=== PATIENT | female | born 1995 | race Two or more races ===

== ENCOUNTER 2017-01-17 09:04 | Inpatient (IN) | payer OTHER ==
[2017-01-17] MEDS ORDERED: NORMAL SALINE 1000 ML 1,000 ML IV ONE ×2 (09:29→10:39)
--- NOTE | 2017-01-17 09:36 | ER Document Report ---
ED Seizure - General Mode of Arrival: Medic Information source: Relative - , Emergency Med Personnel - HPI Patient complains to provider of: First seizure Number of episodes: 2 Preceding symptoms/context: Other - 6 days Character of seizure: Complete loss/conscious Post-ictal symptoms: Confusion Treatment [employer]: Other - Versed 4 mg Associated Symptoms: Confusion, Loss consciousness <MARICHUY HOLBROOK - Last Filed: 01/17/17 09:31> <TAJ HUBER - Last Filed: 01/17/17 12:08> - General Chief Complaint: Seizure Stated Complaint: POSSIBLE SEIZURE Time Seen by Provider: 01/17/17 09:22 Notes: Patient is a 20-year-old female, 6 days , presenting to the emergency department by EMS after she was witnessed having seizure by her , in which she became unresponsive, foaming at the mouth, eyes rolled back just prior to arrival. EMS states that on arrival patient was postictal with a left- sided gaze, confused. Not long after they arrived, EMS witnessed the patient having a grand mal seizure. Per EMS, patient was administered 4 mg of Versed en route, and upon becoming conscious she was very combative. Patient's states that the patient developed hypertension, but was not hypertensive during the . The hospital kept the patient for observation a couple of days after giving naturally with an epidural, and she was discharged on January 13, 2017, 2 days after giving . Patient's reports that last night the patient was complaining of a headache and she lost vision in one eye. Patient's states that they googled her symptoms and saw that they were symptoms of migraines, so the patient just went to sleep. 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 (MARICHUY HOLBROOK) - Related Data Allergies/Adverse Reactions: No Known Allergies Allergy (Verified 01/17/17 09:09) Past Medical History - General Information source: Relative - , Emergency Med Personnel, [facility] - Social History Smoking Status: Never Smoker Family History: Reviewed & Not Pertinent <MARICHUY HOLBROOK - Last Filed: 01/17/17 09:31> Review of Systems - Review of Systems Constitutional: No symptoms reported EENT: See HPI, Other - Lost vision in one eye last night Cardiovascular: No symptoms reported Respiratory: No symptoms reported Gastrointestinal: No symptoms reported Genitourinary: No symptoms reported Female Genitourinary: No symptoms reported Musculoskeletal: No symptoms reported Skin: No symptoms reported Hematologic/Lymphatic: No symptoms reported Neurological/Psychological: See HPI, Seizure, Lost consciousness, Headaches -: Yes All other systems reviewed and negative <MARICHUY HOLBROOK - Last Filed: 01/17/17 09:31> Physical Exam - General General appearance: Alert - Postictal, Confused - HEENT Head: Normocephalic, Atraumatic Eyes: Normal Pupils: PERRL - Respiratory Respiratory status: No respiratory distress Chest status: Nontender Breath sounds: Normal Chest palpation: Normal - Cardiovascular Rhythm: Regular Heart sounds: Normal auscultation Murmur: No - Abdominal Inspection: Normal Distension: No distension Bowel sounds: Normal Tenderness: Nontender Organomegaly: No organomegaly - Back Back: Normal, Nontender - Extremities General upper extremity: Normal inspection, Nontender General lower extremity: Normal inspection, Nontender - Neurological Cognition: Confused [place] Coma Scale Eye Opening: Spontaneous Airam Coma Scale Verbal: Oriented Airam Coma Scale Motor: Obeys Commands Airam Coma Scale Total: 15 - Psychological Associated symptoms: Confused, Other - Postictal - Skin Skin Temperature: Warm Skin Moisture: Dry Skin Color: Normal <MARICHUY HOLBROOK - Last Filed: 01/17/17 09:31> Course <MARICHUY HOLBROOK - Last Filed: 01/17/17 09:31> - Laboratory Result Diagrams: 01/17/17 09:30 01/17/17 09:30 - Diagnostic Test Radiology reviewed: Image reviewed, Reports reviewed - Chest x-ray and brain CT are unremarkable. - EKG Interpretation by Me EKG shows normal: Sinus rhythm, [place], Intervals, QRS Complexes. abnormal: ST-T Waves - Borderline inferior T abnormalities Rate: Tachycardia - 118 P Waves: LAE - Consults Dr. Lopez Consulted provider: will come to ER <TAJ HUBER - Last Filed: 01/17/17 12:08> - Re-evaluation Re-evalutation: 01/17/17 11:14 I went in to review the case with the patient and her spouse. I discussed her headache with her and told her I would order some more pain medication for her. Shortly after I left the room she began having a generalized seizure. This lasted for possibly 2 minutes. She was given some Ativan IV. The magnesium arrived and infusion has been started. (TAJ HUBER) - Vital Signs Vital signs: Temp Pulse Resp BP Pulse Ox 99.0 F 17 127/89 H 96 01/17/17 10:22 01/17/17 11:18 01/17/17 11:18 01/17/17 11:18 - Laboratory Laboratory results interpreted by me: 01/17/17 01/17/17 01/17/17 09:30 09:30 09:30 WBC 13.0 H RDW 15.2 H Seg Neuts % (Manual) 86 H Lymphocytes % (Manual) 8 L Abs Neuts (Manual) 11.2 H Carbon Dioxide 18 L AST 43 H Alkaline Phosphatase 161 H Creatine Kinase 539 H CK-MB (CK-2) 6.18 H Urine Protein Urine Ketones Urine Blood Ur Leukocyte Esterase 01/17/17 10:45 WBC RDW Seg Neuts % (Manual) Lymphocytes % (Manual) Abs Neuts (Manual) Carbon Dioxide AST Alkaline Phosphatase Creatine Kinase CK-MB (CK-2) Urine Protein 100 H Urine Ketones TRACE H Urine Blood MODERATE H Ur Leukocyte Esterase SMALL H Critical Care Note - Critical Care Note Total time excluding time spent on procedures (mins): 40 <TAJ HUBER - Last Filed: 01/17/17 12:08> Discharge <MARICHUY HOLBROOK - Last Filed: 01/17/17 09:31> - Discharge Admitting Provider: [facility] Admitted: Labor and Delivery <TAJ HUBER - Last Filed: 01/17/17 12:08> - Discharge Clinical Impression: eclampsia, seizure Hypertension Qualifiers: Hypertension type: other secondary hypertension Qualified Code(s): I15.8 - Other secondary hypertension Condition: Fair Disposition: ADMITTED INPATIENT Scribe Attestation: 01/17/17 11:29 I personally performed the services described in the documentation, reviewed and edited the documentation which was dictated to the scribe in my presence, and it accurately records my words and actions. (TAJ HUBER) Scribe Documentation - Scribe Written by Scribe:: Ismael Glaser, 01/17/2017 0931 acting as scribe for :: Ness <MARICHUY HOLBROOK - Last Filed: 01/17/17 09:31>
[2017-01-17 09:58] LABS: HEMATOCRIT 38.2 % (36.0-47.0); HEMOGLOBIN 12.4 g/dL (12.0-15.5); MEAN CORPUSCULAR HEMOGLOBIN 28.9 pg (27.0-33.4); MEAN CORPUSCULAR HGB CONC 32.5 g/dL (32.0-36.0); MEAN CORPUSCULAR VOLUME 89 fl (80-97); RED BLOOD COUNT 4.28 10^6/uL (3.72-5.28); RED CELL DISTRIBUTION WIDTH 15.2 % (11.5-14.0)
[2017-01-17 10:12] LABS: ALANINE AMINOTRANSFERASE 35 U/L (9-52); ALBUMIN 3.5 g/dL (3.5-5.0); ALKALINE PHOSPHATASE 161 U/L (38-126); ANION GAP 15 (5-19); ASPARTATE AMINO TRANSFERASE 43 U/L (14-36); BILIRUBIN,DIRECT 0.2 mg/dL (0.0-0.4); BILIRUBIN,TOTAL 0.7 mg/dL (0.2-1.3); BLOOD UREA NITROGEN 14 mg/dL (7-20); CALCIUM 9.3 mg/dL (8.4-10.2); CARBON DIOXIDE 18 mmol/L (22-30); CHLORIDE 106 mmol/L (98-107); CREATINE KINASE 539 U/L (30-135); CREATININE RESULT 0.82 mg/dL (0.52-1.25); GLUCOSE 91 mg/dL (75-110); POTASSIUM 3.8 mmol/L (3.6-5.0); SODIUM 139.3 mmol/L (137-145); TOTAL PROTEIN 6.6 g/dL (6.3-8.2)
[2017-01-17 10:29] LABS: CREATINE KINASE MB 6.18 ng/mL (<4.55)
[2017-01-17 10:31] LABS: ADD ON TESTING BLD IN LAB ACKNOWLEDGE; TROPONIN I 0.057 ng/mL
[2017-01-17] MEDS ORDERED: ACETAMINOPHEN 325 MG TABLET PO ONE (10:38)
[2017-01-17] MEDS ORDERED: MAGNESIUM SULFATE 100 ML IV ONE (10:39)
[2017-01-17 10:42] LABS: BASOPHILS % (MANUAL) 0 % (0-2); EOSINOPHILS % (MANUAL) 1 % (0-6); LYMPHOCYTES % (MANUAL) 8 % (13-45); TOTAL CELLS COUNTED 100
[2017-01-17 10:43] LABS: ANISOCYTOSIS SLIGHT; BURR CELLS SLIGHT; OVALOCYTES SLIGHT; POIKILOCYTOSIS SLIGHT; TEAR DROP CELLS SLIGHT; TOXIC GRANULATION SLIGHT
--- NOTE | 2017-01-17 10:43 | RADIOLOGY REPORT (SQ) ---
EXAM DESCRIPTION: CHEST SINGLE VIEW COMPLETED DATE/TIME: 01/17/2017 10:35 am REASON FOR STUDY: seizure COMPARISON: None. EXAM PARAMETERS: NUMBER OF VIEWS: One view. TECHNIQUE: Single frontal radiographic view of the chest acquired. RADIATION DOSE: NA LIMITATIONS: None. FINDINGS: LUNGS AND PLEURA: No opacities, masses or pneumothorax. No pleural effusion. MEDIASTINUM AND HILAR STRUCTURES: No masses. Contour normal. HEART AND VASCULAR STRUCTURES: Heart normal in size. Normal vasculature. BONES: No acute findings. HARDWARE: None in the chest. OTHER: No other significant finding. IMPRESSION: NO ACUTE RADIOGRAPHIC FINDING IN THE CHEST. TECHNICAL DOCUMENTATION: JOB ID: [id number]
[2017-01-17 10:49] LABS: MAGNESIUM 2.1 mg/dL (1.6-2.3)
--- NOTE | 2017-01-17 10:54 | RADIOLOGY REPORT (SQ) ---
EXAM DESCRIPTION: CT HEAD WITHOUT COMPLETED DATE/TIME: 01/17/2017 10:46 am REASON FOR STUDY: seizure COMPARISON: None. TECHNIQUE: Axial images acquired through the brain without intravenous contrast. Images reviewed wi th bone, brain and subdural windows. Images stored on PACS. All CT scanners at this facility use dose modulation, iterative reconstruction, and/or weight based d osing when appropriate to reduce radiation dose to as low as reasonably achievable (ALARA). [facility]: Dose Right [facility]: CareDose [facility]: Dose Right [facility]: Teradose 4D [facility]: Fix8 RADIATION DOSE: 64.61 mGy. LIMITATIONS: None. FINDINGS: VENTRICLES: Normal size and contour. CEREBRUM: No masses. No hemorrhage. No midline shift. Normal lee/white matter differentiation. N o evidence for acute infarction. CEREBELLUM: No masses. No hemorrhage. No alteration of density. No evidence for acute infarction. EXTRAAXIAL SPACES: No fluid collections. No masses. ORBITS AND GLOBE: No intra- or extraconal masses. Normal contour of globe without masses. CALVARIUM: No fracture. PARANASAL SINUSES: No fluid or mucosal thickening. SOFT TISSUES: No mass or hematoma. OTHER: No other significant finding. IMPRESSION: NORMAL BRAIN CT WITHOUT CONTRAST. TECHNICAL DOCUMENTATION: JOB ID: [id number] Quality ID # [id number]: Final reports with documentation of one or more dose reduction techniques (e.g., Au tomated exposure control, adjustment of the mA and/or kV according to patient size, use of iterative reconstruction technique) 2010 [employer]- All Rights Reserved
[2017-01-17] MEDS ORDERED: LORAZEPAM INJ 2 MG/1 ML VIAL IV ONE (11:07)
[2017-01-17 11:36] LABS: APPEARANCE,URINE CLEAR; BILIRUBIN,URINE NEGATIVE (NEGATIVE); GLUCOSE, URINE NEGATIVE (NEGATIVE); KETONES,URINE TRACE mg/dL (NEGATIVE); LEUKOCYTE ESTERASE,URINE SMALL (NEGATIVE); NITRITE,URINE NEGATIVE (NEGATIVE); PROTEIN,URINE 100 mg/dL (NEGATIVE); URINE SPECIFIC GRAVITY 1.008; UROBILINOGEN,URINE NEGATIVE mg/dL (<2.0)
[2017-01-17 11:59] LABS: ADD ON TESTING BLD IN LAB ACKNOWLEDGE
[2017-01-17] MEDS: MAGNESIUM SULFATE 500 ML IV PRN ×2 (12:02→23:21)
[2017-01-17] MEDS ORDERED: RINGERS SOLUTION,LACTATED 1,000 ML IV PRN (12:21)
[2017-01-17 12:30] LABS: URIC ACID 10.2 mg/dL (2.5-6.2)
[2017-01-17] MEDS ORDERED: LORAZEPAM INJ 2 MG/1 ML VIAL ONE (14:31)
--- NOTE | 2017-01-17 16:19 | EKG REPORT ---
SEVERITY:- BORDERLINE ECG - SINUS TACHYCARDIA PROBABLE LEFT ATRIAL ABNORMALITY BORDERLINE T ABNORMALITIES, INFERIOR LEADS : Confirmed by: Gris Arguello MD 17-Jan-2017 16:18:31
[2017-01-17 19:32] LABS: ABSOLUTE LYMPHOCYTES (AUTO) 0.9 10^3/uL (0.5-4.7); ABSOLUTE MONOCYTES (AUTO) 0.8 10^3/uL (0.1-1.4); ABSOLUTE NEUT (AUTO) 10.8 10^3/uL (1.7-8.2); BASOPHILS % (AUTO) 0.3 % (0-2); EOSINOPHILS % (AUTO) 0.3 % (0-6); HEMATOCRIT 39.3 % (36.0-47.0); HEMOGLOBIN 12.7 g/dL (12.0-15.5); HGB HCT DIFFERENCE -1.2; LYMPHOCYTES % (AUTO) 7.3 % (13-45); MEAN CORPUSCULAR HEMOGLOBIN 28.7 pg (27.0-33.4); MEAN CORPUSCULAR HGB CONC 32.3 g/dL (32.0-36.0); MEAN CORPUSCULAR VOLUME 89 fl (80-97); MONOCYTES % (AUTO) 6.4 % (3-13); RED BLOOD COUNT 4.42 10^6/uL (3.72-5.28); RED CELL DISTRIBUTION WIDTH 15.2 % (11.5-14.0); SEGMENTED NEUTROPHILS % (AUTO) 85.7 % (42-78); WHITE BLOOD COUNT 12.6 10^3/uL (4.0-10.5)
[2017-01-17 19:41] LABS: ALANINE AMINOTRANSFERASE 44 U/L (9-52); ALBUMIN 3.5 g/dL (3.5-5.0); ALKALINE PHOSPHATASE 178 U/L (38-126); ANION GAP 11 (5-19); ASPARTATE AMINO TRANSFERASE 53 U/L (14-36); BILIRUBIN,DIRECT 0.2 mg/dL (0.0-0.4); BILIRUBIN,TOTAL 0.7 mg/dL (0.2-1.3); BLOOD UREA NITROGEN 10 mg/dL (7-20); CALCIUM 8.4 mg/dL (8.4-10.2); CARBON DIOXIDE 22 mmol/L (22-30); CHLORIDE 105 mmol/L (98-107); CREATINE KINASE 1426 U/L (30-135); CREATININE RESULT 0.72 mg/dL (0.52-1.25); GLUCOSE 63 mg/dL (75-110); LDH 1398 U/L (313-618); SODIUM 137.5 mmol/L (137-145); TOTAL PROTEIN 6.5 g/dL (6.3-8.2); URIC ACID 8.5 mg/dL (2.5-6.2)
[2017-01-17 19:53] LABS: CREATINE KINASE MB 8.54 ng/mL (<4.55)
[2017-01-17 19:58] LABS: TROPONIN I 0.105 ng/mL
[2017-01-17] MEDS ORDERED: DEXTROSE 5%-LACTATED RINGERS 1,000 ML IV PRN (20:32)
--- NOTE | 2017-01-17 20:52 | L&D Progress Notes ---
PROGRESS NOTES Datetime Report Generated by CPN: 01/17/2017 20:51 PROGRESS NOTE Impression: Gest. HTN/PreEclampsia/Eclampsia Impression Other: Plan: Continue Present Management Comment: Excellent UO. Still very drwosy but visual changes improving. Has not had CP/SOB. Labs reviewed. CPK/MB still increasing c/w with 3 seizures today. Discussed enzymes with Dr. Cardona who agree this is related to seizures. Will cont to follow and assure adequate hydration. Dr Cardona will see in am. SIGNATURE SIGNATURE: [id number] Signature: with User ID: [email or web address]
[2017-01-18 01:24] LABS: ALANINE AMINOTRANSFERASE 41 U/L (9-52); ALBUMIN 3.3 g/dL (3.5-5.0); ALKALINE PHOSPHATASE 163 U/L (38-126); ANION GAP 11 (5-19); ASPARTATE AMINO TRANSFERASE 44 U/L (14-36); BILIRUBIN,DIRECT 0.2 mg/dL (0.0-0.4); BILIRUBIN,TOTAL 0.8 mg/dL (0.2-1.3); BLOOD UREA NITROGEN 12 mg/dL (7-20); CALCIUM 7.7 mg/dL (8.4-10.2); CARBON DIOXIDE 19 mmol/L (22-30); CHLORIDE 107 mmol/L (98-107); CREATINE KINASE 1369 U/L (30-135); CREATININE RESULT 0.74 mg/dL (0.52-1.25); GLUCOSE 75 mg/dL (75-110); LDH 1149 U/L (313-618); POTASSIUM 3.9 mmol/L (3.6-5.0); SODIUM 137.3 mmol/L (137-145)
[2017-01-18 01:34] LABS: CREATINE KINASE MB 5.31 ng/mL (<4.55); TROPONIN I 0.069 ng/mL
[2017-01-18] MEDS ORDERED: SIMETHICONE 80 MG TAB.CHEW PO PRN (01:51)
[2017-01-18] MEDS ORDERED: DIPH/PERTUSS(ACELL)/TETANUS VAC/PF 0.5 ML SYR (>=10YO) IM PRN (01:51)
[2017-01-18] MEDS ORDERED: PROMETHAZINE HCL INJ 25 MG/1 ML VIAL IV PRN (01:51)
[2017-01-18] MEDS ORDERED: OXYCODONE-ACETAMINOPHEN 5-325 MG TABLET PO PRN ×2 (01:51)
[2017-01-18] MEDS ORDERED: RINGERS SOLUTION,LACTATED 1,000 ML IV PRN (01:51)
[2017-01-18] MEDS ORDERED: MEASLES,MUMPS&RUBELLA VACC/PF 0.5 ML VIAL SUBCUT PRN (01:51)
[2017-01-18] MEDS ORDERED: ACETAMINOPHEN 325 MG TABLET PO PRN (01:51)
[2017-01-18] MEDS ORDERED: OXYTOCIN/NORMAL SALINE 20 UNIT/1,000 ML RTUINJ IV PRN (01:51)
[2017-01-18] MEDS ORDERED: HYDROMORPHONE HCL INJ/PF 2 MG/ML AMPULE IV PRN (01:59)
[2017-01-18] MEDS ORDERED: CEFAZOLIN 1 GM/D5W RTU 50 ML IV SCH (06:00)
[2017-01-18] MEDS ORDERED: IBUPROFEN 800 MG TABLET PO SCH (06:00)
[2017-01-18 06:49] LABS: ABSOLUTE EOSINOPHILS # (AUTO) 0.1 10^3/uL (0.0-0.6); ABSOLUTE LYMPHOCYTES (AUTO) 1.3 10^3/uL (0.5-4.7); ABSOLUTE MONOCYTES (AUTO) 0.8 10^3/uL (0.1-1.4); BASOPHILS % (AUTO) 0.4 % (0-2); EOSINOPHILS % (AUTO) 0.8 % (0-6); HEMATOCRIT 38.9 % (36.0-47.0); HEMOGLOBIN 12.6 g/dL (12.0-15.5); HGB HCT DIFFERENCE -1.1; LYMPHOCYTES % (AUTO) 11.6 % (13-45); MEAN CORPUSCULAR HEMOGLOBIN 28.7 pg (27.0-33.4); MEAN CORPUSCULAR HGB CONC 32.3 g/dL (32.0-36.0); MEAN CORPUSCULAR VOLUME 89 fl (80-97); MONOCYTES % (AUTO) 7.4 % (3-13); RED BLOOD COUNT 4.38 10^6/uL (3.72-5.28); RED CELL DISTRIBUTION WIDTH 15.3 % (11.5-14.0); SEGMENTED NEUTROPHILS % (AUTO) 79.8 % (42-78); WHITE BLOOD COUNT 11.3 10^3/uL (4.0-10.5)
[2017-01-18 07:02] LABS: ALANINE AMINOTRANSFERASE 41 U/L (9-52); ALBUMIN 3.2 g/dL (3.5-5.0); ALKALINE PHOSPHATASE 152 U/L (38-126); ANION GAP 10 (5-19); ASPARTATE AMINO TRANSFERASE 45 U/L (14-36); BILIRUBIN,DIRECT 0.3 mg/dL (0.0-0.4); BILIRUBIN,TOTAL 0.8 mg/dL (0.2-1.3); BLOOD UREA NITROGEN 10 mg/dL (7-20); CALCIUM 7.5 mg/dL (8.4-10.2); CARBON DIOXIDE 22 mmol/L (22-30); CHLORIDE 105 mmol/L (98-107); CREATINE KINASE 1343 U/L (30-135); CREATININE RESULT 0.73 mg/dL (0.52-1.25); GLUCOSE 90 mg/dL (75-110); LDH 1048 U/L (313-618); POTASSIUM 3.7 mmol/L (3.6-5.0); SODIUM 137.2 mmol/L (137-145); TOTAL PROTEIN 6.1 g/dL (6.3-8.2)
[2017-01-18 07:13] LABS: CREATINE KINASE MB 4.75 ng/mL (<4.55); TROPONIN I 0.068 ng/mL
[2017-01-18] MEDS ORDERED: PRENATAL VITAMIN W-O CA NO5/FE FUMARATE/FA CAPSULE PO SCH (10:00)
[2017-01-18] MEDS ORDERED: DOCUSATE SODIUM 100 MG CAPSULE PO SCH (10:00)
[2017-01-18] MEDS ORDERED: LABETALOL HCL 200 MG TABLET ONE (10:05)
[2017-01-18 18:20] LABS: ABSOLUTE EOSINOPHILS # (AUTO) 0.2 10^3/uL (0.0-0.6); ABSOLUTE LYMPHOCYTES (AUTO) 1.3 10^3/uL (0.5-4.7); ABSOLUTE MONOCYTES (AUTO) 0.8 10^3/uL (0.1-1.4); ABSOLUTE NEUT (AUTO) 7.8 10^3/uL (1.7-8.2); BASOPHILS % (AUTO) 0.4 % (0-2); EOSINOPHILS % (AUTO) 1.8 % (0-6); HEMATOCRIT 36.5 % (36.0-47.0); HEMOGLOBIN 12.1 g/dL (12.0-15.5); HGB HCT DIFFERENCE -0.2; LYMPHOCYTES % (AUTO) 12.9 % (13-45); MEAN CORPUSCULAR HEMOGLOBIN 28.9 pg (27.0-33.4); MEAN CORPUSCULAR VOLUME 88 fl (80-97); RED BLOOD COUNT 4.16 10^6/uL (3.72-5.28); RED CELL DISTRIBUTION WIDTH 15.5 % (11.5-14.0); SEGMENTED NEUTROPHILS % (AUTO) 76.9 % (42-78); WHITE BLOOD COUNT 10.1 10^3/uL (4.0-10.5)
[2017-01-18 18:41] LABS: ALANINE AMINOTRANSFERASE 34 U/L (9-52); ALBUMIN 3.1 g/dL (3.5-5.0); ALKALINE PHOSPHATASE 137 U/L (38-126); ANION GAP 8 (5-19); ASPARTATE AMINO TRANSFERASE 34 U/L (14-36); BILIRUBIN,DIRECT 0.2 mg/dL (0.0-0.4); BILIRUBIN,TOTAL 0.5 mg/dL (0.2-1.3); BLOOD UREA NITROGEN 10 mg/dL (7-20); CALCIUM 7.5 mg/dL (8.4-10.2); CARBON DIOXIDE 26 mmol/L (22-30); CHLORIDE 105 mmol/L (98-107); CREATININE RESULT 0.76 mg/dL (0.52-1.25); GLUCOSE 106 mg/dL (75-110); LDH 1007 U/L (313-618); POTASSIUM 3.9 mmol/L (3.6-5.0); SODIUM 139.4 mmol/L (137-145); TOTAL PROTEIN 5.9 g/dL (6.3-8.2); URIC ACID 7.8 mg/dL (2.5-6.2)
--- NOTE | 2017-01-18 20:09 | PDOC CONSULTATION ---
Consultation Consult Date: 01/18/17 Attending physician:: CHECO PAIGE Consult reason:: Abnormal troponin I History of Present Illness Admission Date/PCP: 01/17/17 12:38 CHECO PAIGE MD Patient complains of: Seizure disorder and elevated blood pressure History of Present Illness: STACIE MCKEON is a 21 year-old female, 6 days , admitted through the emergency department after she was witnessed having seizure by her , in which she became unresponsive, foaming at the mouth, eyes rolled back just prior to arrival. EMS states that on arrival patient was postictal with a left- sided gaze, confused. Not long after they arrived, EMS witnessed the patient having a grand mal seizure. Per EMS, patient was administered 4 mg of Versed en route, and upon becoming conscious she was very combative. Patient's states that the patient developed hypertension, but was not hypertensive during the . [facility] kept the patient for observation a couple of days after giving naturally with an epidural, and she was discharged on January 13, 2017, 2 days after giving . Patient's reports that last night the patient was complaining of a headache and she lost vision in one eye. Patient's states that they googled her symptoms and saw that they were symptoms of migraines, so the patient just went to sleep. 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 After admission patient was noted to have elevated blood pressure and was started on magnesium drip. Cardiac enzymes were noted to be elevated as was the skeletal muscle enzyme. 12-lead EKG showed sinus tachycardia with minor ST segment depression. On repeated questioning patient denied any chest pain or shortness of breath. I was advised to evaluate patient because of abnormal cardiac enzymes, sinus tachycardia and elevated blood pressure. Past Medical History Cardiac Medical History: Reports: None Past Surgical History Past Surgical History: Reports: None Social History Information Source: Patient Smoking Status: Never Smoker - Advance Directive Resuscitation Status: Full Code Surrogate healthcare decision maker:: Patient's is the surrogate decision maker Family History Family History: Reviewed & Not Pertinent - Negative for premature coronary artery disease or sudden cardiac in the family amongst first degree relatives. Parental Family History Reviewed: Yes Children Family History Reviewed: Yes Sibling(s) Family History Reviewed.: Yes Medication/Allergy Allergies/Adverse Reactions: No Known Allergies Allergy (Verified 06/07/17 09:09) Review of Systems Review of Systems: Please see history of present illness and past medical history as wall. Constitutional: No fever or chills reported. Head : No recent chronic headaches, recent head injury. Headaches for last several days noted. Eyes: No recent eye pain, diplopia, redness, discharge, acute visual changes. Ears: No recent chronic ear pain, acute hearing loss, ear discharge. Oral cavity: No recent ulcerations, bleeding, oral cavity discomfort. Neck: No recent acute neck pain reported. Hematologic: No recent easy bruising or bleeding or hematologic malignancy reported. Lymphatic: No recent lymphatic malignancy, chronic lymphadenopathy reported yet Cardiovascular system review: See history of present illness. No prior history of heart problems. Respiratory system review: No recent chronic cough, hemoptysis, blood clots in the lungs reported. Mild Shortness of breath on exertion Gastrointestinal system review: Negative for any recent acute or chronic abdominal pain, hematemesis, melena, recent change in bowel habits. Genitourinary system review: No recent acute or chronic hematuria, flank pain, UTI etc. reported. Skin system review: Negative for any recent abnormal bruising, no rash, no pruritus reported. Neurologic: No prior history of strokes, mini strokes, seizure disorder. Loss of vision in one eye reported the day prior. No prior history of seizure disorder but presented with seizures. Psychologic: No history of major psychosis or major depression reported. Musculoskeletal: Minor aches and pains reported. No acute joint swelling reported. Endocrine: No recent polyuria, polydipsia, recent heat or cold intolerance. Physical Exam Vital Signs: Temp Pulse Resp BP Pulse Ox 98.9 F 19 143/94 H 98 01/17/17 13:46 01/17/17 13:46 01/17/17 13:46 01/17/17 13:46 Intake & Output 01/17/17 01/18/17 01/19/17 06:59 06:59 06:59 Output Total 1300 Balance -1300 Exam: GENERAL: well-nourished and in no acute distress. Alert and oriented x3 HEAD: Atraumatic, normocephalic. EYES: Pupils equal round and reactive to light, extraocular movements intact, sclera anicteric, conjunctiva are normal. ENT: TMs normal, nares patent, oropharynx clear without exudates. Moist mucous membranes. No oral ulcerations or bleeding gums noted NECK: supple without lymphadenopathy. Trachea is central. No cervical or axillary lymphadenopathy noted. Carotids are 2+, JVD WNL LUNGS: Respiration seems nonlabored, no significant accessory muscle action noted. Breath sounds clear to auscultation bilaterally and equal noted. No wheezes rales or rhonchi noted. No significant dullness noted on percussion. CHEST: Palpation of the chest wall shows no significant chest wall tenderness. No other significant abnormalities noted. HEART: [place] [employer], No PSH, 1/6 MARSHAL aortic area, 1/6 vickers systolic murmur mitral area, no rubs, no gallops. ABDOMEN: Soft, no significant tenderness appreciated, normoactive bowel sounds. No guarding, no rebound. No rigidity noted . No masses appreciated. EXTREMITIES: Pedal pulses are 1-2+, no calf tenderness noted. No clubbing or cyanosis.trace to 1+ pedal edema noted NEUROLOGICAL: Focused neurological exam showed no significant neurologic deficit. Normal speech, no focal weakness appreciated. PSYCH: Normal mood, normal affect. Judgment and insight within normal limits. SKIN: No significant ecchymosis, rash, ulcerations or signs of pruritus noted. MUSCULOSKELETAL EXAM: No significant joint swelling noted. Results Laboratory Results: 01/18/17 06:37 01/18/17 06:37 01/17/17 01/17/17 01/18/17 18:54 18:54 01:00 WBC 12.6 H RBC 4.42 Hgb 12.7 Hct 39.3 MCV 89 MCH 28.7 MCHC 32.3 RDW 15.2 H Plt Count 259 Seg Neutrophils % 85.7 H Lymphocytes % 7.3 L Monocytes % 6.4 Eosinophils % 0.3 Basophils % 0.3 Absolute Neutrophils 10.8 H Absolute Lymphocytes 0.9 Absolute Monocytes 0.8 Absolute Eosinophils 0.0 Absolute Basophils 0.0 Sodium 137.5 137.3 Potassium 4.0 3.9 Chloride 105 107 Carbon Dioxide 22 19 L Anion Gap 11 11 BUN 10 12 Creatinine 0.72 0.74 Est GFR ( Amer) > 60 > 60 Est GFR (Non-Af Amer) > 60 > 60 Glucose 63 L 75 Uric Acid 8.5 H Calcium 8.4 7.7 L Magnesium Total Bilirubin 0.7 0.8 AST 53 H 44 H ALT 44 41 Alkaline Phosphatase 178 H 163 H Total Protein 6.5 6.0 L Albumin 3.5 3.3 L 01/18/17 01/18/17 01/18/17 06:37 06:37 06:37 WBC 11.3 H RBC 4.38 Hgb 12.6 Hct 38.9 MCV 89 MCH 28.7 MCHC 32.3 RDW 15.3 H Plt Count 304 Seg Neutrophils % 79.8 H Lymphocytes % 11.6 L Monocytes % 7.4 Eosinophils % 0.8 Basophils % 0.4 Absolute Neutrophils 9.0 H Absolute Lymphocytes 1.3 Absolute Monocytes 0.8 Absolute Eosinophils 0.1 Absolute Basophils 0.0 Sodium 137.2 Potassium 3.7 Chloride 105 Carbon Dioxide 22 Anion Gap 10 BUN 10 Creatinine 0.73 Est GFR ( Amer) > 60 Est GFR (Non-Af Amer) > 60 Glucose 90 Uric Acid 9.0 H Calcium 7.5 L Magnesium 6.2 H* D Total Bilirubin 0.8 AST 45 H ALT 41 Alkaline Phosphatase 152 H Total Protein 6.1 L Albumin 3.2 L 01/17/17 01/17/17 01/18/17 18:54 18:54 01:00 Creatine Kinase 1426 H 1369 H CK-MB (CK-2) 8.54 H Troponin I 0.105 01/18/17 01/18/17 01/18/17 01:00 06:37 06:37 Creatine Kinase 1343 H CK-MB (CK-2) 5.31 H 4.75 H Troponin I 0.069 0.068 EKG Comments: Sinus tachycardia with minor nonspecific ST segment depression. Impressions: Chest X-Ray 01/17/17 09:27 IMPRESSION: NO ACUTE RADIOGRAPHIC FINDING IN THE CHEST. Head CT 01/17/17 09:27 IMPRESSION: NORMAL BRAIN CT WITHOUT CONTRAST. Assessment & Plan - Diagnosis (1) Elevated troponin I level Is this a current diagnosis for this admission?: Yes (2) Abnormal EKG Is this a current diagnosis for this admission?: Yes (3) Hypertension Qualifiers: Hypertension type: other secondary hypertension Qualified Code(s): I15.8 - Other secondary hypertension Is this a current diagnosis for this admission?: Yes (4) eclampsia Is this a current diagnosis for this admission?: Yes - Notes Notes: Elevated troponin I: This is most likely related to seizure disorder. It seems patient had at least 3 grand mal seizures which can markedly increase cardiovascular demand and can lead to troponin I release. Total CK and CK-MB release also secondary to seizure disorder. Patient has no prior history of CAD. 2D echo shows no wall motion abnormalities. Abnormal electrocardiogram: Patient noted to have minor ST segment depression. Do not believe these that significant. Hypertension: Related to eclampsia. Have recommended labetalol 100 mg p.o. twice daily to start with and increase as needed. Blood pressure goal should be 130/85 unless. eclampsia: Patient being expectantly managed by acting manager. Will follow patient. Will repeat an EKG in a.m. - Time Time Spent: 30 to 50 Minutes - CODE STATUS was discussed, patient remains full code. Surrogate decision-maker patient's . Multiple medical problems were addressed. More than 50% of the time spent coordinating care, discussing management plans with involved caregivers. Management plans discussed with involved personnels. Medical decision making was of moderate to high complexity , patient's has multiple comorbidities. Medications reviewed and adjusted accordingly: Yes
[2017-01-18] MEDS ORDERED: LABETALOL HCL 200 MG TABLET PO SCH (22:00)
--- NOTE | 2017-01-19 10:34 | PDOC PROGRESS REPORT ---
Subjective Progress Note for:: 01/19/17 Subjective:: Patient seems to be doing better with gradual improvement. Pt is denying any chest arm or neck discomfort. Patient denying any PND, orthopnea. Patient denied any sustained palpitations, dizziness, syncope, near syncope. Patient denying any fever chills. Patient denying any other significant discomfort. Patient claims blood pressure is under good control. Currently resting comfortably. No further seizures Review of systems: Rest review of systems negative. Medications: Medications have been reviewed. Physical Exam Vital Signs: Temp Pulse Resp BP Pulse Ox 97.8 F 86 16 132/80 H 97 01/19/17 07:00 01/19/17 07:00 01/19/17 07:00 01/19/17 07:00 01/19/17 07:00 Intake & Output 01/18/17 01/19/17 01/20/17 06:59 06:59 06:59 Intake Total 200 Output Total 1300 Balance -1300 200 Exam: GENERAL: well-nourished and in no acute distress. Alert and oriented x3 HEAD: Atraumatic, normocephalic. EYES: Pupils equal round and reactive to light, extraocular movements intact, sclera anicteric, conjunctiva are normal. ENT: TMs normal, nares patent, oropharynx clear without exudates. Moist mucous membranes. No oral ulcerations or bleeding gums noted NECK: supple without lymphadenopathy. Trachea is central. No cervical or axillary lymphadenopathy noted. Carotids are 2+, JVD WNL LUNGS: Respiration seems nonlabored, no significant accessory muscle action noted. Breath sounds clear to auscultation bilaterally and equal noted. No wheezes rales or rhonchi noted. No significant dullness noted on percussion. CHEST: Palpation of the chest wall shows no significant chest wall tenderness. No other significant abnormalities noted. 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 ABDOMEN: Soft, no significant tenderness appreciated, normoactive bowel sounds. No guarding, no rebound. No rigidity noted . No masses appreciated. EXTREMITIES: Pedal pulses are 1-2+, no calf tenderness noted. No clubbing or cyanosis.trace to 1+ pedal edema noted NEUROLOGICAL: Focused neurological exam showed no significant neurologic deficit. Normal speech, no focal weakness appreciated. PSYCH: Normal mood, normal affect. Judgment and insight within normal limits. SKIN: No significant ecchymosis, rash, ulcerations or signs of pruritus noted. MUSCULOSKELETAL EXAM: No significant joint swelling noted. Results Laboratory Results: 01/18/17 18:00 01/18/17 18:00 01/18/17 01/18/17 18:00 18:00 WBC 10.1 RBC 4.16 Hgb 12.1 Hct 36.5 MCV 88 MCH 28.9 MCHC 33.0 RDW 15.5 H Plt Count 301 Seg Neutrophils % 76.9 Lymphocytes % 12.9 L Monocytes % 8.0 Eosinophils % 1.8 Basophils % 0.4 Absolute Neutrophils 7.8 Absolute Lymphocytes 1.3 Absolute Monocytes 0.8 Absolute Eosinophils 0.2 Absolute Basophils 0.0 Sodium 139.4 Potassium 3.9 Chloride 105 Carbon Dioxide 26 Anion Gap 8 BUN 10 Creatinine 0.76 Est GFR ( Amer) > 60 Est GFR (Non-Af Amer) > 60 Glucose 106 Uric Acid 7.8 H Calcium 7.5 L Total Bilirubin 0.5 AST 34 ALT 34 Alkaline Phosphatase 137 H Total Protein 5.9 L Albumin 3.1 L 01/17/17 01/17/17 01/18/17 18:54 18:54 01:00 Creatine Kinase 1426 H 1369 H CK-MB (CK-2) 8.54 H Troponin I 0.105 01/18/17 01/18/17 01/18/17 01:00 06:37 06:37 Creatine Kinase 1343 H CK-MB (CK-2) 5.31 H 4.75 H Troponin I 0.069 0.068 Impressions: Chest X-Ray 01/17/17 09:27 IMPRESSION: NO ACUTE RADIOGRAPHIC FINDING IN THE CHEST. Head CT 01/17/17 09:27 IMPRESSION: NORMAL BRAIN CT WITHOUT CONTRAST. Assessment & Plan - Diagnosis (1) Elevated troponin I level Is this a current diagnosis for this admission?: Yes (2) Abnormal EKG Is this a current diagnosis for this admission?: Yes (3) Hypertension Qualifiers: Hypertension type: other secondary hypertension Qualified Code(s): I15.8 - Other secondary hypertension Is this a current diagnosis for this admission?: Yes (4) eclampsia Is this a current diagnosis for this admission?: Yes - Notes Notes: hypertension: Blood pressure still in the elevated. Patient was placed on labetalol yesterday. Continue with it with close monitoring of blood pressure. I will be happy to follow patient in the office very closely if requested. Abnormal EKG: Most likely related to hypertension and eclampsia. Today's EKG showed normalization. Abnormal troponin I level, again related to seizure disorder and Eclampsia. Could consider a plain stress test as an outpatient after about 6 weeks. eclampsia: Being actively managed by MANAGER PRODUCT DESIGN physician. Currently stable. - Time Time with patient: 15-25 minutes - CODE STATUS was discussed, patient remains full code. Surrogate decision-maker unchanged. Multiple medical problems were addressed. More than 50% of the time spent coordinating care, discussing management plans with involved caregivers. Management plans discussed with involved personnels. Medical decision making was of moderate to high complexity , patient's has multiple comorbidities.
--- NOTE | 2017-01-19 11:02 | EKG REPORT ---
SEVERITY:- ABNORMAL ECG - SINUS RHYTHM PROBABLE LEFT ATRIAL ABNORMALITY PROLONGED QT INTERVAL : Confirmed by: Gris Arguello MD 19-Jan-2017 11:01:23
[2017-01-19] MEDS: LABETALOL HCL 200 MG TABLET PO SCH ×2 (13:50→21:00)
--- NOTE | 2017-01-19 13:52 | PDOC PROGRESS REPORT ---
Subjective Progress Note for:: 01/19/17 Subjective:: patient denies any further PreE ROS. No RODRIGUEZ blurry vision or other indications of seizures. Is sitting up and eating lunch without difficulty. Physical Exam - Physical Exam Vital Signs: Temp Pulse Resp BP Pulse Ox 98.1 F 75 14 130/85 H 99 01/19/17 11:24 01/19/17 11:24 01/19/17 11:24 01/19/17 11:24 01/19/17 11:24 Intake & Output 01/18/17 01/19/17 01/20/17 06:59 06:59 06:59 Intake Total 200 Output Total 1300 Balance -1300 200 General appearance: PRESENT: no acute distress, cooperative Head exam: PRESENT: atraumatic Eye exam: PRESENT: PERRLA GI/Abdominal exam: PRESENT: soft Neurological exam: PRESENT: alert, awake, oriented to person, oriented to place , oriented to time - Obstetrical Exam Fundal Height: u/u - u/2 Tender: No Result Laboratory Results: 01/18/17 18:00 01/18/17 18:00 01/18/17 01/18/17 18:00 18:00 WBC 10.1 RBC 4.16 Hgb 12.1 Hct 36.5 MCV 88 MCH 28.9 MCHC 33.0 RDW 15.5 H Plt Count 301 Seg Neutrophils % 76.9 Lymphocytes % 12.9 L Monocytes % 8.0 Eosinophils % 1.8 Basophils % 0.4 Absolute Neutrophils 7.8 Absolute Lymphocytes 1.3 Absolute Monocytes 0.8 Absolute Eosinophils 0.2 Absolute Basophils 0.0 Sodium 139.4 Potassium 3.9 Chloride 105 Carbon Dioxide 26 Anion Gap 8 BUN 10 Creatinine 0.76 Est GFR ( Amer) > 60 Est GFR (Non-Af Amer) > 60 Glucose 106 Uric Acid 7.8 H Calcium 7.5 L Total Bilirubin 0.5 AST 34 ALT 34 Alkaline Phosphatase 137 H Total Protein 5.9 L Albumin 3.1 L 01/17/17 01/17/17 01/18/17 18:54 18:54 01:00 Creatine Kinase 1426 H 1369 H CK-MB (CK-2) 8.54 H Troponin I 0.105 01/18/17 01/18/17 01/18/17 01:00 06:37 06:37 Creatine Kinase 1343 H CK-MB (CK-2) 5.31 H 4.75 H Troponin I 0.069 0.068 Impressions: Chest X-Ray 01/17/17 09:27 IMPRESSION: NO ACUTE RADIOGRAPHIC FINDING IN THE CHEST. Head CT 01/17/17 09:27 IMPRESSION: NORMAL BRAIN CT WITHOUT CONTRAST. Assessment & Plan - Diagnosis (1) Abnormal EKG Is this a current diagnosis for this admission?: Yes (2) Elevated troponin I level Is this a current diagnosis for this admission?: Yes (3) Hypertension Qualifiers: Hypertension type: other secondary hypertension Qualified Code(s): I15.8 - Other secondary hypertension Is this a current diagnosis for this admission?: Yes (4) eclampsia Is this a current diagnosis for this admission?: Yes - Time Time Spent with patient: Less than 15 minutes Anticipated discharge: Home Within: within 24 hours - Inpatient Certification Based on my medical assessment, after consideration of the patient's comorbidities, presenting symptoms, or acuity I expect that the services needed warrant INPATIENT care.: Yes I certify that my determination is in accordance with my understanding of Medicare's requirements for reasonable and necessary INPATIENT services [42 CFR 412.3e].: Yes Medical Necessity: Need Close Monitoring Due to Risk of Patient Decompensation - will monitor overnight and if continues to do well and labs continue to normalize will discharge in the AM.
[2017-01-20] MEDS: LABETALOL HCL 200 MG TABLET PO SCH (05:16)
[2017-01-20 07:51] LABS: HEMATOCRIT 36.8 % (36.0-47.0); HEMOGLOBIN 11.7 g/dL (12.0-15.5); HGB HCT DIFFERENCE -1.7; MEAN CORPUSCULAR HEMOGLOBIN 28.8 pg (27.0-33.4); MEAN CORPUSCULAR HGB CONC 31.7 g/dL (32.0-36.0); MEAN CORPUSCULAR VOLUME 91 fl (80-97); RED BLOOD COUNT 4.06 10^6/uL (3.72-5.28); RED CELL DISTRIBUTION WIDTH 15.4 % (11.5-14.0); WHITE BLOOD COUNT 7.7 10^3/uL (4.0-10.5)
[2017-01-20 08:06] LABS: ALANINE AMINOTRANSFERASE 33 U/L (9-52); ALBUMIN 3.3 g/dL (3.5-5.0); ALKALINE PHOSPHATASE 124 U/L (38-126); ANION GAP 10 (5-19); ASPARTATE AMINO TRANSFERASE 28 U/L (14-36); BILIRUBIN,DIRECT 0.2 mg/dL (0.0-0.4); BILIRUBIN,TOTAL 0.5 mg/dL (0.2-1.3); BLOOD UREA NITROGEN 9 mg/dL (7-20); CALCIUM 9.2 mg/dL (8.4-10.2); CARBON DIOXIDE 24 mmol/L (22-30); CHLORIDE 110 mmol/L (98-107); GLUCOSE 80 mg/dL (75-110); LDH 753 U/L (313-618); POTASSIUM 4.3 mmol/L (3.6-5.0); SODIUM 143.5 mmol/L (137-145); TOTAL PROTEIN 6.3 g/dL (6.3-8.2); URIC ACID 4.9 mg/dL (2.5-6.2)
--- NOTE | 2017-01-20 09:30 | PDOC PROGRESS REPORT ---
Subjective Subjective:: Pt reports feeling well today. No new complaints No s/s of Pre-E Physical Exam - Physical Exam Vital Signs: Temp Pulse Resp BP Pulse Ox 98.1 F 91 17 131/87 H 99 01/20/17 08:27 01/20/17 08:27 01/20/17 08:27 01/20/17 08:27 01/20/17 08:27 Intake & Output 01/19/17 01/20/17 01/21/17 06:59 06:59 06:59 Intake Total 200 580 Balance 200 580 General appearance: PRESENT: no acute distress, cooperative, well-developed Neurological exam: PRESENT: alert, awake, oriented to person, oriented to place , oriented to time, reflexes normal Result Laboratory Results: 01/20/17 07:39 01/20/17 07:39 01/20/17 01/20/17 07:39 07:39 WBC 7.7 RBC 4.06 Hgb 11.7 L Hct 36.8 MCV 91 MCH 28.8 MCHC 31.7 L RDW 15.4 H Plt Count 307 Sodium 143.5 Potassium 4.3 Chloride 110 H Carbon Dioxide 24 Anion Gap 10 BUN 9 Creatinine 0.70 Est GFR ( Amer) > 60 Est GFR (Non-Af Amer) > 60 Glucose 80 Uric Acid 4.9 Calcium 9.2 Total Bilirubin 0.5 AST 28 ALT 33 Alkaline Phosphatase 124 Total Protein 6.3 Albumin 3.3 L 01/17/17 01/17/17 01/18/17 18:54 18:54 01:00 Creatine Kinase 1426 H 1369 H CK-MB (CK-2) 8.54 H Troponin I 0.105 01/18/17 01/18/17 01/18/17 01:00 06:37 06:37 Creatine Kinase 1343 H CK-MB (CK-2) 5.31 H 4.75 H Troponin I 0.069 0.068 Impressions: Chest X-Ray 01/17/17 09:27 IMPRESSION: NO ACUTE RADIOGRAPHIC FINDING IN THE CHEST. Head CT 01/17/17 09:27 IMPRESSION: NORMAL BRAIN CT WITHOUT CONTRAST. Assessment & Plan - Diagnosis (1) Hypertension Qualifiers: Hypertension type: other secondary hypertension Qualified Code(s): I15.8 - Other secondary hypertension Is this a current diagnosis for this admission?: Yes (2) eclampsia Is this a current diagnosis for this admission?: Yes - Time Time Spent with patient: 15-24 minutes Medications reviewed and adjusted accordingly: Yes Anticipated discharge: Home Within: within 24 hours - Will d/c pt to home Strict Pre-E Precautions F/u with [facility] on Sunday or Sunday
[2017-01-20 09:54] VITALS: BP 145/84
--- NOTE | 2017-01-20 10:53 | PDOC PROGRESS REPORT ---
Subjective Progress Note for:: 01/20/17 Subjective:: Patient seems to be doing better with gradual improvement. Pt is denying any chest arm or neck discomfort. Patient denying any PND, orthopnea. Patient denied any sustained palpitations, dizziness, syncope, near syncope. Patient denying any fever chills. Patient denying any other significant discomfort. Yesterday labetalol dose was increased to 200 mg p.o. 3 times a day. Patient claims blood pressure is under good control. Currently resting comfortably. No further seizures Review of systems: Rest review of systems negative. Medications: Medications have been reviewed. Physical Exam Vital Signs: Temp Pulse Resp BP Pulse Ox 98.1 F 91 17 145/84 H 99 01/20/17 09:46 01/20/17 09:46 01/20/17 09:46 01/20/17 09:46 01/20/17 09:46 Intake & Output 01/19/17 01/20/17 01/21/17 06:59 06:59 06:59 Intake Total 200 580 Balance 200 580 Exam: GENERAL: well-nourished and in no acute distress. Alert and oriented x3 HEAD: Atraumatic, normocephalic. EYES: Pupils equal round and reactive to light, extraocular movements intact, sclera anicteric, conjunctiva are normal. ENT: TMs normal, nares patent, oropharynx clear without exudates. Moist mucous membranes. No oral ulcerations or bleeding gums noted NECK: supple without lymphadenopathy. Trachea is central. No cervical or axillary lymphadenopathy noted. Carotids are 2+, JVD WNL LUNGS: Respiration seems nonlabored, no significant accessory muscle action noted. Breath sounds clear to auscultation bilaterally and equal noted. No wheezes rales or rhonchi noted. No significant dullness noted on percussion. CHEST: Palpation of the chest wall shows no significant chest wall tenderness. No other significant abnormalities noted. 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 ABDOMEN: Soft, no significant tenderness appreciated, normoactive bowel sounds. No guarding, no rebound. No rigidity noted . No masses appreciated. EXTREMITIES: Pedal pulses are 1-2+, no calf tenderness noted. No clubbing or cyanosis.trace to 1+ pedal edema noted NEUROLOGICAL: Focused neurological exam showed no significant neurologic deficit. Normal speech, no focal weakness appreciated. PSYCH: Normal mood, normal affect. Judgment and insight within normal limits. SKIN: No significant ecchymosis, rash, ulcerations or signs of pruritus noted. MUSCULOSKELETAL EXAM: No significant joint swelling noted. Results Laboratory Results: 01/20/17 07:39 01/20/17 07:39 01/20/17 01/20/17 07:39 07:39 WBC 7.7 RBC 4.06 Hgb 11.7 L Hct 36.8 MCV 91 MCH 28.8 MCHC 31.7 L RDW 15.4 H Plt Count 307 Sodium 143.5 Potassium 4.3 Chloride 110 H Carbon Dioxide 24 Anion Gap 10 BUN 9 Creatinine 0.70 Est GFR ( Amer) > 60 Est GFR (Non-Af Amer) > 60 Glucose 80 Uric Acid 4.9 Calcium 9.2 Total Bilirubin 0.5 AST 28 ALT 33 Alkaline Phosphatase 124 Total Protein 6.3 Albumin 3.3 L 01/17/17 01/17/17 01/18/17 18:54 18:54 01:00 Creatine Kinase 1426 H 1369 H CK-MB (CK-2) 8.54 H Troponin I 0.105 01/18/17 01/18/17 01/18/17 01:00 06:37 06:37 Creatine Kinase 1343 H CK-MB (CK-2) 5.31 H 4.75 H Troponin I 0.069 0.068 Impressions: Chest X-Ray 01/17/17 09:27 IMPRESSION: NO ACUTE RADIOGRAPHIC FINDING IN THE CHEST. Head CT 01/17/17 09:27 IMPRESSION: NORMAL BRAIN CT WITHOUT CONTRAST. Assessment & Plan - Diagnosis (1) Elevated troponin I level Is this a current diagnosis for this admission?: Yes (2) Abnormal EKG Is this a current diagnosis for this admission?: Yes (3) Hypertension Qualifiers: Hypertension type: other secondary hypertension Qualified Code(s): I15.8 - Other secondary hypertension Is this a current diagnosis for this admission?: Yes (4) eclampsia Is this a current diagnosis for this admission?: Yes - Notes Notes: Hypertension: Blood pressure still elevated intermittently. Patient has been advised to monitor closely and follow with her primary care physician or with me on a regular basis. Exact etiology of hypertension not known but could well be related to eclampsia. However patient has high probability of having underlying sleep apnea syndrome as she sleeps very poorly and does have a history of snoring. Patient has been advised to schedule a sleep study. I will be happy to provide this service to my office. Elevated troponin I, most likely related to supply demand mismatch from seizure disorder. Abnormal cardiac enzymes and liver enzymes including LDH related to eclampsia and also seizure disorder. Patient was given my card and was advised for close follow-up either with me or at the [facility]. - Time Time with patient: 15-25 minutes - CODE STATUS was discussed, patient remains full code. Surrogate decision-maker unchanged. Multiple medical problems were addressed. More than 50% of the time spent coordinating care, discussing management plans with involved caregivers. Management plans discussed with involved personnels. Medical decision making was of moderate to high complexity , patient's has multiple comorbidities. Medications reviewed and adjusted accordingly: Yes
--- NOTE | 2017-02-27 10:57 | DISCHARGE SUMMARY E ---
Discharge Summary NAME: STACIE MCKEON : 1995 AGE: 21Y ADMITTED: 01/17/2017 DISCHARGED: 01/20/2017 REASON FOR ADMISSION: eclampsia. HISTORY AND PHYSICAL: See history and physical on 01/17/[address] Lopez for full details. HOSPITAL COURSE: The patient is admitted to the labor and delivery unit where she is started on magnesium sulfate. She has no further seizures noted on labor and delivery. She is continuing the magnesium sulfate for 24 hours. Her initial pH labs are slightly elevated, but are drawn every few hours and they trend downward following administration of magnesium sulfate. Again, patient is continued on magnesium sulfate for 24 hours and has no further seizures. Following 24 hours, she is transferred to the unit for additional 2 days of observation in which her pH labs continue to trend down. By hospital day number 3, patient's vital signs remain stable. She has had no further seizure activity and her labs have normalized. She is meeting goals and therefore will be discharged home. DISCHARGE INSTRUCTIONS: Discharge patient home. Diet is regular. Activity is pelvic rest x4 weeks. Followup interval is 2-3 days with her merged with [facility] alcohol [facility] drug counselor over at [place]. MEDICATIONS ON DISCHARGE: None. SPECIAL INSTRUCTIONS: Patient instructed to call MD if temperature greater than 100.5, heavy vaginal bleeding, or signs and symptoms of pre-eclampsia reoccur. DICTATING PHYSICIAN: Fish Suarez DO [id number] PHY#: [id number] ID: [id number] JOB#: [id number] ACCT: [id number] cc:CHECO LOPEZ M.D. Fish Suarez D.O. >
== END 2017-01-20 11:17 | disposition home or self-care (01) | DRG 776 ==
LOC: EDBD 09:04 → ER 09:04 → EH 12:38 → LR 14:10 → 2S 01-18 15:10
PROVIDERS: ADMIT Specialist; ATTEND Specialist
DX: O15.2 Eclampsia complicating the puerperium (principal); O99.355 Diseases of the nervous system complicating the puerperium; G40.409 Other generalized epilepsy and epileptic syndromes, not intractable, without status epilepticus; O16.5 Unspecified maternal hypertension, complicating the puerperium; R74.8 Abnormal levels of other serum enzymes
CPT/HCPCS: 36415; 70450; 71010; 80053; 81001; 82550; 82553; 83615; 83735; 84484; 84550; 85025; 85027; 93005; 93010; 93306; 96361; 96365; 96367; 96375; 99291; J2060; J3475; J7030; J7120

== ENCOUNTER 2017-01-27 21:21 | Emergency (ER) | payer OTHER ==
[2017-01-27 22:09] VITALS: BP 106/63
== END 2017-01-27 23:04 | disposition left against medical advice (07) ==
LOC: ER 21:21
DX: Z53.9 Procedure and treatment not carried out, unspecified reason (principal); R50.9 Fever, unspecified